=== PATIENT | male | born 1995 | race Two or more races ===

== ENCOUNTER 2022-03-23 08:39 | Emergency (ER) | payer OTHER ==
[~2022-03-23] VITALS: Ht 172.7 cm; Wt 98.0 kg
[2022-03-23] MEDS ORDERED: BIKTARVY 30-121 EACH PO (09:10)
== END 2022-03-23 11:42 | disposition home or self-care (01) ==
LOC: ER 08:39
DX: J03.90 Acute tonsillitis, unspecified (principal); Z20.822 Contact with and (suspected) exposure to COVID-19; Z88.6 Allergy status to analgesic agent

== ENCOUNTER 2023-04-03 11:51 | Emergency (ER) | payer OTHER ==
[~2023-04-03] VITALS: Ht 172.7 cm; Wt 88.9 kg
[~2023-04-03 11:51] MED LIST: BIKTARVY 30-121 EACH PO
[2023-04-03] MEDS ORDERED: CONCERTA36 MG (12:04)
== END 2023-04-03 17:39 | disposition home or self-care (01) ==
LOC: ER 11:51
DX: L97.529 Non-pressure chronic ulcer of other part of left foot with unspecified severity (principal); Z88.6 Allergy status to analgesic agent